=== PATIENT | male | born 1965 ===

== ENCOUNTER 2018-06-30 23:19 | Inpatient (IN) ==
[2018-06-30] MEDS ORDERED: fentaNYL 100 MCG/2 ML VIAL IV STA (23:26)
[2018-06-30] MEDS ORDERED: VANCOMYCIN INJ 1,000 MG in SODIUM CHLORIDE 0.9% 250 ML IV STA (23:45)
[2018-06-30] MEDS ORDERED: CEFEPIME 1,000 MG in SODIUM CHLORIDE 0.9% 100 ML IV STA (23:45)
[2018-07-01 00:41] LABS: Basophils # 0.1 10*3/uL (0.0-0.2); Basophils % 0.2 % (0.0-0.8); Eosinophils % 0.1 % (0.00-10.9); Hematocrit 36.7 VOL% (42.0-52.0); Hemoglobin 11.2 GM/DL (14.0-18.0); Immature Granulocytes % 0.9 %; Immature Granulocytes Absolute 0.21 #; Lymphocytes # 0.8 10*3/uL (1.4-4.0); Lymphocytes % 3.6 % (21.2-54.2); Mean Corpuscular HGB Conc 30.5 GM/DL (32-36); Mean Corpuscular Volume 101.1 FL (87-102); Monocytes % 3.9 % (1.7-12.7); NRBC # 0.13 10*3/uL; Neutrophils % 91.3 % (38.7-73.9); Platelet Count 49 T/CUMM (130-400); Red Blood Count 3.63 MC/CUMM (3.8-5.5); Red Cell Distribution Width 18.3 % (9.3-17.3); White Blood Count 22.7 T/CUMM (4-12)
[2018-07-01 01:26] LABS: Band Neutrophils 2 % (0-10); Eosinophils 1 % (0-10); Lymphocytes 2 % (20-55); Segmented Neutrophils 94 % (50-85); Total Cells Counted 100
[2018-07-01 01:27] LABS: Anisocytosis Slight; Microcytosis Slight; Polychromasia Few
[2018-07-01 01:29] LABS: Platelet Estimate Decreased
[2018-07-01 01:40] LABS: Alanine Aminotransferase 118 U/L (16-61); Albumin 1.9 G/DL (3.4-5.0); Alkaline Phosphatase 155 U/L (45-117); Aspartate Amino Transferase 694 U/L (0-37); Blood Urea Nitrogen 22 MG/DL (7-18); Calcium 7.9 MG/DL (8.5-10.1); Glucose 116 MG/DL (74-106); Osmolality,Calculated 282.4 MOS/KG (273-304); Total Protein 6.9 G/DL (6.4-8.3)
[2018-07-01] MEDS ORDERED: fentaNYL 100 MCG/2 ML VIAL IV STA (02:30)
[2018-07-01] MEDS ORDERED: SODIUM CHLORIDE 0.9% 500 ML IV STA ×2 (02:47→04:31)
[2018-07-01] MEDS ORDERED: HEPARIN 1,000 UNIT/1 ML VIAL IV STA (03:42)
[2018-07-01] MEDS ORDERED: HEPARIN 5,000 UNIT/1 ML VIAL IV STA (03:46)
[2018-07-01] MEDS ORDERED: HEPARIN DRIP 25,000 UNITS/500 ML PREMIX IV SCH (04:00)
[2018-07-01] MEDS ORDERED: ONDANSETRON 4 MG/2 ML VIAL ONE (04:45)
[2018-07-01] MEDS ORDERED: ONDANSETRON 4 MG/2 ML VIAL IV STA (04:45)
[2018-07-01 06:35] LABS: ABG Base Excess -2.7 MMOL/L (-2.5-2.5); ABG HCO3 22.1 MMOL/L (20-26); ABG Oxygen Saturation 96.6 % (95-100); ABG PCO2 29.9 MM HG (35-48); ABG PH 7.441 (7.35-7.45); ABG PO2 91.7 MM HG (80-95); ABG TCO2 18.1 MMOL/L (23-27); Allen Test Positive
[2018-07-01] MEDS: CALCIUM ACETATE 667 MG CAPSULE PO SCH ×3 (07:40→17:22)
[2018-07-01] MEDS: cefTRIAXone 1,000 MG in SYRINGE 1 EACH IV SCH (07:54)
[2018-07-01] MEDS: ONDANSETRON 4 MG/2 ML VIAL IV PRN ×2 (08:05→12:40)
[2018-07-01 08:57] LABS: Risk Ratio 1.72; Thyroid Stimulating Hormone 1.44 uIU/ml (0.358-3.74); VLDL CHOLESTEROL 14.2 MG/DL
[2018-07-01] MEDS ORDERED: PANTOPRAZOLE 40 MG VIAL IV SCH (09:00)
[2018-07-01] MEDS ORDERED: LACTULOSE 20 GM/30 ML UDCUP PO SCH ×2 (09:00)
[2018-07-01] MEDS: RIFAXIMIN 550 MG TABLET PO SCH ×2 (09:19→20:06)
[2018-07-01 11:11] LABS: INR 1.6; PT Patient Result 17.6 SECS
[2018-07-01 11:13] LABS: Partial Thromboplastin Time 66.1 SECS (0-40)
[2018-07-01] MEDS ORDERED: DEXTROSE 50% 25 GM/50 ML SYRINGE IV ONE (16:05)
[2018-07-01] MEDS: DEXTROSE 50% 25 GM/50 ML SYRINGE IV PRN ×4 (16:08→23:08)
[2018-07-01] MEDS ORDERED: GLUCAGON 1 MG VIAL IM PRN (16:10)
[2018-07-01] MEDS: INSULIN REGULAR 100 UNIT/ML SUBCUT SCH ×2 (16:37→19:43)
[2018-07-01] MEDS: PANTOPRAZOLE 40 MG VIAL IV SCH (20:06)
[2018-07-02] MEDS: INSULIN REGULAR 100 UNIT/ML SUBCUT SCH ×6 (00:09→19:49)
[2018-07-02] MEDS: DEXTROSE 50% 25 GM/50 ML SYRINGE IV PRN ×6 (01:57→21:47)
[2018-07-02] MEDS ORDERED: DEXTROSE 10% 500 ML IV SCH (02:00)
[2018-07-02 03:27] LABS: Calcium 6.9 MG/DL (8.5-10.1); Osmolality,Calculated 288.4 MOS/KG (273-304)
[2018-07-02 03:55] LABS: Basophils # 0.2 10*3/uL (0.0-0.2); Basophils % 0.4 % (0.0-0.8); Hematocrit 36.3 VOL% (42.0-52.0); Hemoglobin 10.3 GM/DL (14.0-18.0); Immature Granulocytes % 3.9 %; Immature Granulocytes Absolute 1.56 #; Lymphocytes # 1.7 10*3/uL (1.4-4.0); Lymphocytes % 4.3 % (21.2-54.2); Mean Corpuscular HGB Conc 28.4 GM/DL (32-36); Monocytes % 7.5 % (1.7-12.7); NRBC # 0.14 10*3/uL; Neutrophils % 83.9 % (38.7-73.9); Platelet Count 41 T/CUMM (130-400); Red Blood Count 3.36 MC/CUMM (3.8-5.5); Red Cell Distribution Width 18.2 % (9.3-17.3); White Blood Count 39.9 T/CUMM (4-12)
[2018-07-02 03:55] LABS: Albumin 1.4 G/DL (3.4-5.0); Bilirubin,Direct 0.836 MG/DL (0.0-0.20); Bilirubin,Indirect 1.6 MG/DL (0.0-1.0); Bilirubin,Total 2.4 MG/DL (0.2-1.0)
[2018-07-02 03:56] LABS: Total Protein 5.5 G/DL (6.4-8.3)
[2018-07-02] MEDS: DEXTROSE 10% 500 ML IV SCH ×3 (04:06→20:35)
[2018-07-02 04:39] LABS: Anisocytosis 2+; Band Neutrophils 1 % (0-10); Eosinophils 1 % (0-10); Hypochromasia 1+; Lymphocytes 4 % (20-55); Microcytosis Slight; Polychromasia 1+; Segmented Neutrophils 85 % (50-85); Smudge Cells Few; Total Cells Counted 100
[2018-07-02 04:41] LABS: Platelet Estimate Decreased
[2018-07-02] MEDS: cefTRIAXone 1,000 MG in SYRINGE 1 EACH IV SCH (07:03)
[2018-07-02] MEDS ORDERED: VANCOMYCIN INJ 1,000 MG in SODIUM CHLORIDE 0.9% 250 ML IV ONE (08:03)
[2018-07-02] MEDS ORDERED: GENTAMICIN INJ 80 MG in PREMIX 1 EACH IV ONE (08:04)
[2018-07-02] MEDS ORDERED: methylPREDNISolone SOD SUC 40 MG/1 ML VIAL IV ONE (08:05)
[2018-07-02] MEDS ORDERED: HEPARIN/NACL 0.9% 2 UNITS/ML 500 ML IV ONE (08:09)
[2018-07-02] MEDS: CALCIUM ACETATE 667 MG CAPSULE PO SCH ×3 (08:21→17:54)
[2018-07-02 08:32] LABS: ABG Base Excess -13.6 MMOL/L (-2.5-2.5); ABG HCO3 13.9 MMOL/L (20-26); ABG Oxygen Saturation 97.7 % (95-100); ABG PH 7.348 (7.35-7.45); ABG TCO2 9.8 MMOL/L (23-27); Allen Test Positive
[2018-07-02 08:33] LABS: ABG PCO2 19.5 MM HG (35-48)
[2018-07-02] MEDS ORDERED: SODIUM BICARBONATE 50 MEQ/50 ML VIAL IV ONE ×6 (08:35→16:15)
[2018-07-02] MEDS: PANTOPRAZOLE 40 MG VIAL IV SCH ×2 (09:39→20:24)
[2018-07-02] MEDS: metroNIDAZOLE INJ 500 MG in PREMIX 1 EACH IV SCH ×3 (09:39→20:24)
[2018-07-02] MEDS: PHENYLEPHRINE DRIP 40 MG/250 ML PREMIX IV PRN ×2 (10:00→14:43)
[2018-07-02 11:23] LABS: ABG Base Excess -14.2 MMOL/L (-2.5-2.5); ABG HCO3 13.5 MMOL/L (20-26); ABG Oxygen Saturation 98.2 % (95-100); ABG PCO2 38.5 MM HG (35-48); ABG TCO2 13.1 MMOL/L (23-27); Glucose Heart Surgery 71 MG/DL (74-106); Hematocrit Heart Surgery 28.4 PERCENT (42-52); Hemoglobin Heart Surgery 9.2 G/DL (14.0-18.0); Potassium Heart/CVR 5.7 MMOL/L (3.5-5.1)
[2018-07-02] MEDS ORDERED: CALCIUM CHLORIDE 1,000 MG/10 ML VIAL IV ONE (11:26)
[2018-07-02 11:44] LABS: ABG PH 7.162 (7.35-7.45)
[2018-07-02] MEDS ORDERED: ALBUMIN 5% 12.5 GM/250 ML VIAL IV ONE (12:42)
[2018-07-02] MEDS ORDERED: MIDAZOLAM 2 MG/2 ML VIAL ONE (12:43)
[2018-07-02] MEDS ORDERED: ETOMIDATE 40 MG/20 ML VIAL IV ONE (12:43)
[2018-07-02] MEDS ORDERED: ROCURONIUM 100 MG/10 ML VIAL IV ONE (12:43)
[2018-07-02] MEDS ORDERED: ONDANSETRON 4 MG/2 ML VIAL ONE (12:43)
[2018-07-02] MEDS ORDERED: SEVOFLURANE 1 UNIT/15 MINUTE INH ONE (12:43)
[2018-07-02] MEDS ORDERED: SODIUM CHLORIDE 0.9% 500 ML IV ONE (12:43)
[2018-07-02] MEDS ORDERED: SODIUM CHLORIDE 0.9% 2,000 ML IV ONE (12:43)
[2018-07-02] MEDS ORDERED: PHENYLEPHRINE 10 MG/1 ML VIAL IV ONE (12:43)
[2018-07-02] MEDS ORDERED: methylPREDNISolone SOD SUC 125 MG/2 ML VIAL ONE (12:43)
[2018-07-02 13:13] LABS: ABG HCO3 13.4 MMOL/L (20-26); ABG Oxygen Saturation 98.5 % (95-100); ABG PCO2 35.5 MM HG (35-48); ABG TCO2 12.9 MMOL/L (23-27)
[2018-07-02 13:15] LABS: ABG PH 7.184 (7.35-7.45)
[2018-07-02 13:23] LABS: Basophils # 0.1 10*3/uL (0.0-0.2); Basophils % 0.2 % (0.0-0.8); Eosinophils % 0.1 % (0.00-10.9); Hematocrit 25.5 VOL% (42.0-52.0); Hemoglobin 7.2 GM/DL (14.0-18.0); Immature Granulocytes % 5.4 %; Immature Granulocytes Absolute 1.59 #; Lymphocytes # 1.6 10*3/uL (1.4-4.0); Lymphocytes % 5.5 % (21.2-54.2); Mean Corpuscular HGB Conc 28.2 GM/DL (32-36); Monocytes % 9.4 % (1.7-12.7); NRBC # 0.17 10*3/uL; Neutrophils % 79.4 % (38.7-73.9); Platelet Count 42 T/CUMM (130-400); Red Blood Count 2.34 MC/CUMM (3.8-5.5); White Blood Count 29.4 T/CUMM (4-12)
[2018-07-02 13:29] LABS: Mean Platelet Volume 14.1 FL (9.6-12.0)
[2018-07-02] MEDS ORDERED: CALCIUM CHLORIDE 1,000 MG/10 ML SYRINGE IV ONE ×2 (13:33→13:53)
[2018-07-02] MEDS ORDERED: NOREPINEPHRINE 4 MG/4 ML VIAL IV ONE (13:40)
[2018-07-02 13:52] LABS: Alanine Aminotransferase 521 U/L (16-61); Albumin 1.4 G/DL (3.4-5.0); Alkaline Phosphatase 65 U/L (45-117); Aspartate Amino Transferase 2341 U/L (0-37); Blood Urea Nitrogen 49 MG/DL (7-18); Calcium 6.7 MG/DL (8.5-10.1); Osmolality,Calculated 294.8 MOS/KG (273-304); Total Protein 4.1 G/DL (6.4-8.3)
[2018-07-02] MEDS ORDERED: SODIUM CHLORIDE 0.9% 1,000 ML IV ONE (13:54)
[2018-07-02] MEDS: PROPOFOL 1,000 MG/100 ML BOTTLE IV SCH ×2 (13:57→14:40)
[2018-07-02 14:00] LABS: Glucose 35 MG/DL (74-106)
[2018-07-02] MEDS: PHENYLEPHRINE INJ 160 MG in SODIUM CHLORIDE 0.9% 234 ML IV PRN ×2 (14:59→21:49)
[2018-07-02 15:28] LABS: Band Neutrophils 18 % (0-10); Lymphocytes 6 % (20-55); Metamyelocytes 1 %; Nucleated Red Blood Cells 3 (0-5); Segmented Neutrophils 73 % (50-85); Total Cells Counted 100
[2018-07-02] MEDS ORDERED: fentaNYL INJ 1,250 MCG in SODIUM CHLORIDE 0.9% 225 ML IV PRN (15:30)
[2018-07-02] MEDS: NOREPINEPHRINE 16 MG in SODIUM CHLORIDE 0.9% 234 ML IV PRN ×2 (15:37→22:24)
[2018-07-02 15:43] LABS: Burr Cells 3+; Polychromasia 1+
[2018-07-02 15:44] LABS: Anisocytosis 1+; Microcytosis 2+; Poikilocytosis 1+
[2018-07-02 15:45] LABS: Platelet Estimate Decreased; Spherocytes 1+
[2018-07-02 15:52] LABS: ABG Base Excess -18.7 MMOL/L (-2.5-2.5); ABG HCO3 10.3 MMOL/L (20-26); ABG Oxygen Saturation 97.6 % (95-100); ABG PCO2 32.4 MM HG (35-48); ABG TCO2 9.7 MMOL/L (23-27)
[2018-07-02 15:58] LABS: ABG PH 7.094 (7.35-7.45)
[2018-07-02] MEDS ORDERED: SODIUM BICARB INJ 150 MEQ in DEXTROSE 5% 850 ML IV SCH (16:30)
[2018-07-02 22:11] LABS: Hepatitis B Core IgM Quant < 0.05 Index; Hepatitis B Surface Ag Quant < 0.10 Index; Hepatitis B Surface Ag Result Negative (Negative); Hepatitis C Virus Ab Quant < 0.02 Index; Hepatitis C Virus Ab Result Negative (Negative)
[2018-07-03] MEDS: INSULIN REGULAR 100 UNIT/ML SUBCUT SCH ×2 (01:42→05:21)
[2018-07-03] MEDS: metroNIDAZOLE INJ 500 MG in PREMIX 1 EACH IV SCH (02:35)
[2018-07-03 03:34] LABS: Basophils # 0.1 10*3/uL (0.0-0.2); Basophils % 0.2 % (0.0-0.8); Immature Granulocytes % 1.9 %; Immature Granulocytes Absolute 0.39 #; Lymphocytes % 9.3 % (21.2-54.2); Mean Corpuscular HGB Conc 25.9 GM/DL (32-36); Mean Corpuscular Volume 115.2 FL (87-102); Mean Platelet Volume 11.6 FL (9.6-12.0); Monocytes % 8.1 % (1.7-12.7); NRBC # 0.19 10*3/uL; Neutrophils % 80.5 % (38.7-73.9); Platelet Count 61 T/CUMM (130-400); Red Blood Count 2.31 MC/CUMM (3.8-5.5); Red Cell Distribution Width 19.7 % (9.3-17.3); White Blood Count 21.1 T/CUMM (4-12)
[2018-07-03 03:40] LABS: Hematocrit 26.1 VOL% (42.0-52.0)
[2018-07-03 03:49] LABS: INR 2.4
[2018-07-03 03:54] LABS: PT Patient Result 25.6 SECS
[2018-07-03 04:02] LABS: Albumin 1.6 G/DL (3.4-5.0); Bilirubin,Total 2.4 MG/DL (0.2-1.0); Calcium 7.1 MG/DL (8.5-10.1); Total Protein 4.1 G/DL (6.4-8.3)
[2018-07-03 04:07] LABS: ABG Base Excess -25.4 MMOL/L (-2.5-2.5); ABG HCO3 6.6 MMOL/L (20-26); ABG Oxygen Saturation 96.4 % (95-100); ABG PCO2 23.9 MM HG (35-48); ABG TCO2 5.4 MMOL/L (23-27)
[2018-07-03 04:09] LABS: ABG PH 6.959 (7.35-7.45)
[2018-07-03 04:43] LABS: Anisocytosis Slight; Band Neutrophils 2 % (0-10); Lymphocytes 4 % (20-55); Macrocytosis Slight; Nucleated Red Blood Cells 2 (0-5); Segmented Neutrophils 90 % (50-85); Total Cells Counted 100
[2018-07-03 04:44] LABS: Platelet Estimate Decreased
[2018-07-03] MEDS: NOREPINEPHRINE 16 MG in SODIUM CHLORIDE 0.9% 234 ML IV PRN (05:22)
[2018-07-03] MEDS: PHENYLEPHRINE INJ 160 MG in SODIUM CHLORIDE 0.9% 234 ML IV PRN (05:22)
[2018-07-03 06:30] VITALS: BP 59/19
[2018-07-03] MEDS: cefTRIAXone 1,000 MG in SYRINGE 1 EACH IV SCH (06:35)
[2018-07-03] MEDS: CALCIUM ACETATE 667 MG CAPSULE PO SCH (08:19)
[2018-07-03] MEDS: DEXTROSE 10% 500 ML IV SCH (08:19)
== END 2018-07-03 06:50 | disposition expired | DRG 853 ==
LOC: N.ED 23:19 → N.EDINP 07-01 06:01 → N.ICU 07-01 06:52
PROVIDERS: ADMIT Internal Medicine Cardiovascular Disease; ATTEND Internal Medicine Cardiovascular Disease